=== PATIENT | male | born 1975 | race Caucasian/White ===

== ENCOUNTER 2017-01-22 09:45 | Emergency (ER) | payer OTHER ==
[2017-01-22] MEDS ORDERED: PROPARACAINE 0.5% 15 ML OPHT DROP EACHEYE ONE (10:21)
--- NOTE | 2017-01-22 11:16 | EDPHY ---
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 HPI/ROS: Chief complaint: Left eye discomfort History of present illness: This is a 41-year-old male who presents to the emergency department for left eye discomfort. Approximately 1 hour prior to arrival he accidentally used peroxide that he uses to clean his contacts as an eye moisturizing drop. Since then he has had discomfort. He has attempted to wash out his eye without [id number] eye wash but is still is bothering him. He denies changes in vision. He denies other associated signs or symptoms. He is not wearing his contact right now. - Personal History Current Tetanus/Diphtheria Vaccine: Yes Current Tetanus Diphtheria and Acellular Pertussis (TDAP): Yes - Medical/Surgical History Hx Asthma: No Hx Chronic Respiratory Disease: No Hx Diabetes: No Hx Cardiac Disease: No Hx Renal Disease: No Hx Cirrhosis: No Hx Alcoholism: No Hx HIV/AIDS: No Hx Splenectomy or Spleen Trauma: No Other PMH: PMH: GERD - Social History Smoking Status: Never smoked - Physical Exam Exam: General: Alert, nontoxic Eyes: No discharge. The left eye is injected. No subconjunctival hemorrhage. No hyphema. No hypopyon. PERRLA. EOM intact. Red reflex present. Right eye unremarkable. Skin: Periorbital tissue unremarkable. Constitutional: Initial Vital Signs Temperature (C) 36.7 C 01/22/17 09:59 Heart Rate 65 01/22/17 09:59 Respiratory Rate 18 01/22/17 09:59 Blood Pressure 145/95 H 01/22/17 09:59 O2 Sat (%) 100 01/22/17 09:59 O2 Delivery Mode Room Air Allergies/Adverse Reactions: No Known Allergies Allergy (Unverified 01/22/17 10:01) Home Medications: Medication Instructions Recorded Multi-Vitamin Daily 01/22/17 Ranitidine HCl 01/22/17 Tobramycin/Dexamethasone [Tobradex 1 drop OP QID 5 Days 01/22/17 Eye Drops] Medical Decision Making Procedures: Patient's eye pH tested with pH paper both before and after eye wash in remains between 7 and 8 Patient's eye is irrigated with 2 L of normal saline ED Course/Re-evaluation: Patient is seen under the supervision of my secondary supervising physician Dr. Jaziel Layne. Patient presents to the emergency depart for eye discomfort. His eye pH is normal on arrival. He is still copiously irrigated. I pH remained within normal limits. He has normal visual acuities. I have discussed the case with on-call ophthalmology, Dr. Brush. He recommends TobraDex. Further, patient has an appointment with his crown attacher this afternoon, I have encouraged to keep this appointment for re-evaluation. Return precautions are given. Patient voiced understanding and agreement with plan. Differential Diagnosis: Included but not limited to chemical conjunctivitis, corneal abrasion, corneal ulceration - Data Points Medications Given: Discontinued Medications Proparacaine HCl (Alcaine 0.5%) 1 drops EACHEYE ONCE ONE Stop: 01/22/17 10:22 Last Admin: 01/22/17 10:23 Dose: 1 drop Departure - Departure Disposition: Home, Routine, Self-Care Clinical Impression: Conjunctivitis, chemical Qualifiers: Laterality: left Qualified Code(s): H10.212 - Acute toxic conjunctivitis, left eye Condition: Good Instructions: Conjunctivitis (ED) Additional Instructions: Follow-up with your crown attacher today as already scheduled Do not use your contacts again until cleared by your crown attacher Discuss the use of TobraDex with your crown attacher If symptoms worsen or new symptoms develop return to the emergency room for recheck Referrals: MICHELLE ASHRAF [Other] - As per Instructions Prescriptions: Tobramycin/Dexamethasone [Tobradex Eye Drops] 1 drop OP QID 5 Days
[2017-01-22 11:48] VITALS: BP 112/74; PULSE 87; RESP 16; TEMP 98.2; O2SAT 98
== END 2017-01-22 11:44 | disposition home or self-care (01) ==
DX: T65.891A Toxic effect of other specified substances, accidental (unintentional), initial encounter (principal); H10.212 Acute toxic conjunctivitis, left eye